=== PATIENT | male | born 2005 | race Caucasian/White ===

== ENCOUNTER 2024-06-21 15:40 | Outpatient (CLI) | payer OTHER, MEDICAID, SELFPAY | END 2024-06-21 15:41 | disposition home or self-care (01) | LOC: AMB 07-08 08:39 | PROVIDERS: Visit Provider Emergency Medicine | DX: F29 Unspecified psychosis not due to a substance or known physiological condition (principal) | CPT/HCPCS: A0425; A0429 ==